=== PATIENT | female | born 1985 | race Caucasian/White ===

== ENCOUNTER 2016-09-14 19:35 | Outpatient (CLI) | payer OTHER ==
[~2016-09-14] VITALS: Ht 160 cm; Wt 75.9 kg
[2016-09-14 19:48] VITALS: Ht 160 cm; Wt 75.9 kg
[2016-09-14 19:49] VITALS: BP 126/74; PULSE 86; RESP 18
[2016-09-14] MEDS ORDERED: PREN-93 PO (19:51)
[2016-09-14] MEDS ORDERED: LACTATED RINGER'S 1,000 ML IV SCH ×2 (20:54→22:24)
--- NOTE | 2016-09-14 21:05 | RADRPT ---
PROCEDURE: OB ultrasound for biophysical profile CLINICAL INDICATION: Biophysical profile. . TECHNIQUE: Multiple sonographic images of the pelvis were obtained. Transabdominal and transvagin al views are obtained. COMPARISON: 09/01/2016 FINDINGS: Single intrauterine gestation. Presentation: Transverse maternal left Placenta: Posterior No evidence of placental abruption. No evidence of placenta previa. Cervix is closed of visualized transvaginally measuring 4.4 cm. breathing movement = 2/2 tone = 2/2 motion = 2/2 JULIA = 2/2 JULIA = 13.8 cm heart rate: 144 beats per minute IMPRESSION: Single intrauterine gestation. Biophysical profile 12/19 Presentation is breech - transverse maternal left RPTAT: AADD .Ronaldo Zepeda MD, Date Time Electronically viewed and signed by .Ronaldo Zepeda MD, on 09/14/2016 21:04 .B/
[2016-09-14 22:08] LABS: ADD UMIC NO; URINE BILIRUBIN (Dip) NEGATIVE (NEGATIVE); URINE BLOOD (Dip) NEGATIVE (NEGATIVE); URINE COLOR LT. YELLOW (YELLOW); URINE GLUCOSE (Dip) NEGATIVE (NEGATIVE); URINE KETONES (Dip) NEGATIVE (NEGATIVE); URINE LEUKOCYTE ESTERASE (Dip) NEGATIVE (NEGATIVE); URINE NITRITE (Dip) NEGATIVE (NEGATIVE); URINE TOTAL PROTEIN (Dip) NEGATIVE (NEGATIVE); URINE UROBILINOGEN (Dip) 0.2 E.U./dL (0.1-1.0)
--- NOTE | 2016-09-15 03:24 | QN ---
Documentation Comment Laborist ER panel pt 30 y.o. with an IUP at 32 weeks c/o abdominal pressure and cramps. No VB. No leaking. +FM. PMHx: none. PSHx: none. POBHX: x 2. NKDA. BP 126/74 T= 98.3 BPP 8/8 with an JULIA of 13.8cm. CX 4.4 cm long and closed. BREECH. U/A negative. NST: baseline 130 bpm with accels to 160 bpm. No decels. UC's on occasion. Pt was given IV hydration only and now feels much improved. A: IUP at 32 weeks. False labor. D/C IV and D/C home. PTL precautions reviewed. FARZANEH EDUARDO MD September 15, 2016 03:24
--- NOTE | 2016-09-15 03:45 | TRIAGE ---
OB Triage Datetime Report Generated by CPN: 09/15/2016 03:45 Datetime: 09/15/2016 03:00 Labor Evaluation Frequency: 1/HR Monitor Mode: External Duration (sec)2399: 60 Quality: Mild Pattern: Normal: <= 5 Contractions in 10 Minutes Resting Tone [place]: Relaxed Heart Rate FHR Baseline Rate: 135 FHR Baseline Changes: No Baseline Change Variability: Moderate 6-25 bpm Accelerations: 15X15 Decelerations: None Category: Category I Datetime: 09/15/2016 02:00 Labor Evaluation Frequency: 2/hr Monitor Mode: External Duration (sec)2399: 60 Quality: Mild Pattern: Normal: <= 5 Contractions in 10 Minutes Resting Tone [place]: Relaxed Heart Rate FHR Baseline Rate: 135 Monitor Mode: External US FHR Baseline Changes: No Baseline Change Variability: Moderate 6-25 bpm Accelerations: 15X15 Decelerations: None Category: Category I Datetime: 09/15/2016 01:00 Labor Evaluation Frequency: 0 Monitor Mode: External Heart Rate FHR Baseline Rate: 135 Monitor Mode: External US FHR Baseline Changes: No Baseline Change Variability: Moderate 6-25 bpm Accelerations: 15X15 Decelerations: None Category: Category I Datetime: 09/15/2016 00:00 Labor Evaluation Frequency: 0 Monitor Mode: External Heart Rate FHR Baseline Rate: 145 Monitor Mode: External US FHR Baseline Changes: No Baseline Change Variability: Moderate 6-25 bpm Accelerations: 15X15 Decelerations: None Category: Category I Datetime: 09/14/2016 23:00 Labor Evaluation Frequency: 0 Monitor Mode: External Heart Rate FHR Baseline Rate: 145 FHR Baseline Changes: No Baseline Change Variability: Moderate 6-25 bpm Accelerations: 15X15 Decelerations: None Category: Category I Datetime: 09/14/2016 22:00 Labor Evaluation Frequency: IRREGULAR Monitor Mode: External Duration (sec)2399: 60-120 Quality: Mild Pattern: Normal: <= 5 Contractions in 10 Minutes Resting Tone [place]: Relaxed Heart Rate FHR Baseline Rate: 135 Monitor Mode: External US FHR Baseline Changes: No Baseline Change Variability: Moderate 6-25 bpm Accelerations: 15X15 Decelerations: None Category: Category I Datetime: 09/14/2016 21:00 Stage of : OB Triage Labor Evaluation Frequency: 2/HR Monitor Mode: External Duration (sec)2399: 120 Quality: Mild Pattern: Normal: <= 5 Contractions in 10 Minutes Resting Tone [place]: Relaxed Heart Rate FHR Baseline Rate: 135 Monitor Mode: External US FHR Baseline Changes: No Baseline Change Variability: Moderate 6-25 bpm Accelerations: 15X15 Decelerations: None Category: Category I Datetime: 09/14/2016 20:00 Stage of : OB Triage Labor Evaluation Frequency: 0 Monitor Mode: External Heart Rate FHR Baseline Rate: 145 Monitor Mode: External US FHR Baseline Changes: No Baseline Change Variability: Moderate 6-25 bpm Accelerations: 15X15 Decelerations: None Category: Category I Datetime: 09/14/2016 19:53 EGA: 31.6 Datetime: 09/14/2016 19:42 Stage of : OB Triage Time of Arrival: 09/14/2016 19:29 Arrived By: Wheelchair Arrived From: Home Chief Complaint: ABDOMINAL PRESSURE AND CRAMPING Movement: Present Time Contractions Began: 09/14/2016 11:00 Rupture of Membranes: Denies Vaginal Bleeding: None Vaginal Discharge: Denies Recent Sexual Intercouse: Denies Abdominal Trauma: Not Applicable Patient Complaints: None (Annotations: Data stored by CPN on behalf of user) Time Provider Notified: 09/15/2016 19:30 Provider Notified: DR EDUARDO Initial Plan: CALL MD EFRachael Maternal Assessment Level of Consciousness: Fully Conscious DTR's/Clonus: DTRs 2+; No Clonus Headache: Denies Blurred Vision: No Respiratory Effort: Unlabored; Regular Rhythm; Equal Expansion Breath Sounds, Left: Clear and Equal Breath Sounds, Right: Clear and Equal Nausea/Vomiting: Denies RUQ Epigastric Pain: Denies Lower Extremities Edema: None Degree: None Upper Extremities Edema: None Degree: None Facial Edema: None Temperature Route: Oral Fall Risk Assessment History of Falling: (0) No Secondary Diagnosis: (0) No Ambulatory Aid: (0) Bedrest/Nurse Assist IV Therapy: (0) No Gait: (0) Normal/Bedrest/Immobile Mental Status: (0) Oriented to Own Ability Fall Score: 0 Fall Risk Score Definition: No Risk: No action required Monitor Mode: External Monitor Mode: External US Pain Assessment Pain Scale: 6 Pain Presence: Intermittent Pain Type: Cramping Pain Location: Abdomen
== END 2016-09-15 03:31 | disposition home or self-care (01) ==
LOC: L-D 19:35 → OBT 19:35
PROVIDERS: ATTEND Obstetrics & Gynecology
DX: O47.03 False labor before 37 completed weeks of gestation, third trimester (principal); Z3A.32 32 weeks gestation of pregnancy
CPT/HCPCS: 76817; 76818; 81003; 87086; 96360; 96361; J7120; Z7500; G0463

== ENCOUNTER 2018-06-23 18:49 | Inpatient (IN) | payer MEDICAID ==
[~2018-06-23] VITALS: Ht 160 cm; Wt 74.2 kg
[~2018-06-23 18:49] MED LIST: PREN-93 PO
[2018-06-23 18:59] VITALS: Ht 160 cm; Wt 74.2 kg
[2018-06-23 19:00] VITALS: BP 107/52; PULSE 62; RESP 18
[2018-06-23] MEDS: LACTATED RINGER'S 1,000 ML IV SCH (23:32)
[2018-06-23] MEDS: MEPERIDINE 25 MG INJ IV PRN (23:32)
[2018-06-23] MEDS: ONDANSETRON 4 MG INJ IV PRN (23:33)
[2018-06-24] MEDS: LACTATED RINGER'S 1,000 ML IV SCH ×3 (03:07→16:36)
[2018-06-24] MEDS: ONDANSETRON 4 MG INJ IV PRN (04:23)
[2018-06-24] MEDS: MEPERIDINE 25 MG INJ IV PRN ×2 (04:23→14:06)
--- NOTE | 2018-06-24 13:01 | HP ---
Date/Time of Note Date/Time of Note DATE: 06/24/18 TIME: 12:58 OB - History Hx of Present Chief Complaint: Epigasric pain Estimated Due Date: Oct 24, 2018 : 4 Para: 3 Spontaneous : 0 Therapeutic : 0 Care: Other (records not available) Obstetrical Complications: None Medical Complications: None Past Family/Social History * Past Medical, Surgical, Family and Obstetric Histories reviewed from chart. OB Admission Exam Vital Signs Vital Signs Vital Signs Date Temp Pulse Resp B/P (MAP) Pulse Ox O2 O2 Flow FiO2 Time Delivery Rate 06/23/18 97.6 62 18 107/52 Room Air 19:00 (70) Physical Exam HEENT: WNL Heart: Rhythm Normal Lungs: Clear, Equal Abdomen: WNL Extremities: Normal Reflexes: Normal Cervical Dilatation: None Heart Rate: 130's Last 72 hours Lab Results CBC & BMP 06/23/18 19:38 06/24/18 06:10 Liver Function Test 06/23/18 19:38 06/24/18 06:10 Alanine Aminotransferase (ALT/SGPT) 16 60 Albumin 3.4 2.7 L Alkaline Phosphatase 128 H 150 H Aspartate Amino Transf (AST/SGOT) 32 118 H Direct Bilirubin 0.00 0.00 Total Protein 6.7 5.4 #L OB Assessment/Plan Reason for admission: other Other Assessment: Gallstone pancreatitis Cholelithiasis Plan: Other Other plan: Admit NPO IV hydration Surgery consult SILVANO MICHELLE MD Jun 24, 2018 13:01
--- NOTE | 2018-06-24 14:00 | CONS ---
Assessment/Plan Assessment/Plan Hospital Course (Demo Recall) 1. Acute pancreatitis likely secondary to gallstones -N.p.o. -Aggressive IV fluid 2. Cholelithiasis with concern for choledocholithiasis -GI consult for possible ERCP -MRCP to evaluate for choledocholithiasis 3. Transaminitis: -As above -Trend 4. Gravid 22 weeks: -Per knifeman 5. Hypoalbuminemia: -Eventual nutrition optimization 6. Normocytic normochromic anemia: -Monitor and transfuse as needed Thank you. Patient seen and examined in collaboration with Dr. Sergio Tovar. Consultation Date/Type/Reason Admit Date/Time Jun 23, 2018 at 22:45 Date of Consultation: Jun 24, 2018 Type of Consult Surgical Reason for Consultation Abdominal pain, cholelithiasis, choledocholithiasis Requesting Provider: SILVANO MICHELLE MD Date/Time of Note DATE: 06/24/18 TIME: 13:49 Hx of Present Illness Peggy Santo is a 32-year-old woman with out significant past medical history, 4 para 3, currently 22 weeks , who presented with complaints of abdominal pain. Abdominal pain is predominantly in the midepigastric region, sharp and persistent in nature. Pain reportedly began a few hours after eating. She denies fevers, chills, sob, congested cough, cp, palpitations, lundberg, dizziness, n/v/d/dysuria, change in bowel/bladder habits. Ultrasound of the right upper quadrant shows cholelithiasis without sonographic evidence of cholecystitis, as well as mild dilatation of the common bile duct concerning for nonvisualized choledocholithiasis.Laboratory findings remarkable for mild transaminitis as well as elevated amylase and lipase. General surgery was asked to evaluate. 12 point review of systems was performed and is negative except for stated in HPI. Past Medical History Medical History: no pertinent history Home Meds Reported Medications Vit No.124/Iron/FA ( Vitamin Tablet) 1 Each Tablet, 1 EACH PO, TAB 09/14/16 Medications Current Medications Lactated Ringer's 1,000 ml @ 150 mls/hr Q6H40M IV Last administered on 06/24/18at 09:48; Admin Dose 150 MLS/HR; Start 06/23/18 at 22:50 Ondansetron HCl (Zofran Inj) 4 mg Q6H PRN IV NAUSEA/VOMITING Last administered on 06/24/18at 04:23; Admin Dose 4 MG; Start 06/23/18 at 23:00 Meperidine HCl (Demerol) 25 mg Q4H PRN IV SEVERE PAIN LEVEL 7-10 Last a dministered on 06/24/18at 04:23; Admin Dose 25 MG; Start 06/23/18 at 23:00 Allergies: Coded Allergies: No Known Allergy (Unverified , 09/14/16) Past Surgical History Past Surgical Hx: no surgical history Family History Significant Family History: no pertinent family hx Social History Smoking Status: Never smoker Exam/Review of Systems Exam Vitals Vital Signs Date Temp Pulse Resp B/P (MAP) Pulse Ox O2 O2 Flow FiO2 Time Delivery Rate 06/23/18 97.6 62 18 107/52 Room Air 19:00 (70) Intake and Output 06/23/18 06/23/18 06/24/18 1515:00 23:00 07:00 IntakeIntake Total 1575 ml BalanceBalance 1575 ml Constitutional: alert, oriented, well developed Psych: nl mood/affect; No anxiety Head: normocephalic, atraumatic Eyes: nl conjunctiva, EOMI, nl lids, nl sclera ENMT: nl external ears & nose, nl lips & teeth, mucosa pink and moist Neck: supple, non-tender; No jvd Respiratory: normal air movement; No congested cough Cardiovascular: regular rate and rhythm, nl pulses Gastrointestinal: soft, distended (Minimal), tender (Midepigastric and right upper quadrant; negative Steiner's by palpation), other (Gravid) Genitourinary - Female: nl external genitalia Musculoskeletal: nl extremities to inspection, nl gait and stance Extremities: normal pulses Neurological: nl mental status, nl speech, nl strength Skin: No rash or lesions Results Result Diagram: 06/24/18 0610 06/24/18 0610 Results 24hrs Laboratory Tests Test 06/23/18 19:38 06/23/18 20:30 06/24/18 06:10 White Blood Count 11.8 H 9.5 Red Blood Count 3.42 #L 3.32 L Hemoglobin 11.0 L 10.6 L Hematocrit 32.9 #L 31.8 L Mean Corpuscular Volume 96.2 95.8 Mean Corpuscular Hemoglobin 32.2 31.9 Mean Corpuscular 33.4 33.3 Hemoglobin Concent Red Cell Distribution Width 13.3 13.4 Platelet Count 256 257 Mean Platelet Volume 10.2 10.5 H Immature Granulocytes % 0.900 H 0.500 H Neutrophils % 83.9 H 79.3 H Lymphocytes % 10.0 L 12.3 L Monocytes % 4.3 7.0 Eosinophils % 0.7 0.8 Basophils % 0.2 0.1 Nucleated Red Blood Cells % 0.0 0.0 Immature Granulocytes # 0.100 H 0.050 H Neutrophils # 9.9 H 7.5 Lymphocytes # 1.2 1.2 Monocytes # 0.5 0.7 Eosinophils # 0.1 0.1 Basophils # 0.0 0.0 Nucleated Red Blood Cells # 0.0 0.0 Sodium Level 135 137 Potassium Level 3.2 L 4.1 Chloride Level 104 109 Carbon Dioxide Level 22 22 Anion Gap 9 6 Blood Urea Nitrogen 11 7 Creatinine 0.51 0.45 Est Glomerular Filtrat > 60 > 60 Rate mL/min Glucose Level 118 90 Calcium Level 8.8 8.7 Total Bilirubin 0.2 0.2 Direct Bilirubin 0.00 0.00 Indirect Bilirubin 0.2 0.2 Aspartate Amino 32 118 H Transf (AST/SGOT) Alanine 16 60 Aminotransferase (ALT/SGPT) Alkaline Phosphatase 128 H 150 H Total Protein 6.7 5.4 #L Albumin 3.4 2.7 L Globulin 3.30 H 2.70 Albumin/Globulin Ratio 1.03 1.00 Amylase Level 118 367 #H Lipase 170 2815 H Urine Color YELLOW Urine Clarity SLIGHTLY CLOUDY A Urine pH 7.0 Urine Specific [place] 1.013 Urine Ketones NEGATIVE Urine Nitrite NEGATIVE Urine Bilirubin NEGATIVE Urine Urobilinogen NEGATIVE Urine Leukocyte Esterase NEGATIVE Urine Microscopic RBC 0 Urine Microscopic WBC 3 Urine Squamous MODERATE Epithelial Cells Urine Hemoglobin NEGATIVE Urine Glucose NEGATIVE Urine Total Protein 1+ H Medications Medication Current Medications Lactated Ringer's 1,000 ml @ 150 mls/hr Q6H40M IV Last administered on 06/24/18at 09:48; Admin Dose 150 MLS/HR; Start 06/23/18 at 22:50 Ondansetron HCl (Zofran Inj) 4 mg Q6H PRN IV NAUSEA/VOMITING Last administered on 06/24/18at 04:23; Admin Dose 4 MG; Start 06/23/18 at 23:00 Meperidine HCl (Demerol) 25 mg Q4H PRN IV SEVERE PAIN LEVEL 7-10 Last administered on 06/24/18 04:23; Admin Dose 25 MG; Start 06/23/18 at 23:00 OMKAR SIMMONS NP Jun 24, 2018 13:59
[2018-06-24] MEDS: DEXTROSE 5%-LR 1,000 ML IV SCH (21:07)
[2018-06-25] MEDS: DEXTROSE 5%-LR 1,000 ML IV SCH ×4 (03:55→23:40)
[2018-06-25] MEDS: MEPERIDINE 25 MG INJ IV PRN ×3 (03:55→18:57)
--- NOTE | 2018-06-25 12:18 | PN ---
Date/Time of Note Date/Time of Note DATE: 06/25/18 TIME: 12:15 Assessment/Plan Lines/Catheters IV Catheter Type (from [facility]): Peripheral IV Assessment/Plan Chief Complaint/Hosp Course 1. Acute pancreatitis likely secondary to gallstones:resolved -ok for clears 2. Cholelithiasis with concern for choledocholithiasis -GI consult for possible ERCP -MRCP to evaluate for choledocholithiasis>pending 3. Transaminitis:resolved -As above -Trend 4. Gravid 22 weeks: -Per bodybuilder 5. Hypoalbuminemia: -Eventual nutrition optimization 6. Normocytic normochromic anemia: -Monitor and transfuse as needed Thank you. Patient seen and examined in collaboration with Dr. Sergio Tovar. Subjective 24 Hr Interval Summary abdominal pain improved. MRI pending today. james/lipase normalized. No fevers, chills, sob, congested cough, cp, palpitations, lundberg, dizziness, n/v/d/dysuria. Exam/Review of Systems Vital Signs Vitals Vital Signs Date Temp Pulse Resp B/P (MAP) Pulse Ox O2 O2 Flow FiO2 Time Delivery Rate 06/23/18 97.6 62 18 107/52 Room Air 19:00 (70) Intake and Output 06/24/18 06/24/18 06/25/18 1515:00 23:00 07:00 IntakeIntake Total 425 ml 2000 ml 1300 ml BalanceBalance 425 ml 2000 ml 1300 ml Exam Free Text/Dictation Constitutional: alert, oriented, well developed Psych: nl mood/affect; No anxiety Head: normocephalic, atraumatic Eyes: nl conjunctiva, EOMI, nl lids, nl sclera ENMT: nl external ears & nose, nl lips & teeth, mucosa pink and moist Neck: supple, non-tender; No jvd Respiratory: normal air movement; No congested cough Cardiovascular: regular rate and rhythm, nl pulses Gastrointestinal: soft, distended (Minimal), tender (Midepigastric and right upper quadrant; negative Steiner's by palpation--improved), other (Gravid) Genitourinary - Female: nl external genitalia Musculoskeletal: nl extremities to inspection, nl gait and stance Extremities: normal pulses Neurological: nl mental status, nl speech, nl strength Skin: No rash or lesions Results Result Diagram: 06/25/18 0736 06/25/18 0736 OMKAR SIMMONS NP Jun 25, 2018 12:18
--- NOTE | 2018-06-25 16:29 | QN ---
Documentation Comment Patient had pain earlier. Patient feels better. Afebrile VSS Strip Appropriate for GA Amylase and lipase improved Advance to clear liquids per Surery. SILVANO MICHELLE MD Jun 25, 2018 16:29
[2018-06-25] MEDS: ONDANSETRON 4 MG INJ IV PRN (21:16)
[2018-06-25] MEDS: ACETAMINOPHEN 325 MG TAB PO PRN (21:44)
[2018-06-26] MEDS: DEXTROSE 5%-LR 1,000 ML IV SCH ×3 (04:07→20:21)
[2018-06-26] MEDS: MEPERIDINE 25 MG INJ IV PRN ×4 (07:16→18:10)
--- NOTE | 2018-06-26 12:01 | QN ---
Documentation Comment C/o abdominal pain Afebrile VSS Strip appropriate for GA Continue care per Surgery SILVANO MICHELLE MD Jun 26, 2018 12:01
[2018-06-26] MEDS: ONDANSETRON 4 MG INJ IV PRN (18:10)
--- NOTE | 2018-06-26 21:56 | PN ---
Date/Time of Note Date/Time of Note DATE: 06/26/18 TIME: 21:53 Assessment/Plan Lines/Catheters IV Catheter Type (from [facility]): Peripheral IV Assessment/Plan Chief Complaint/Hosp Course 1. Acute pancreatitis likely secondary to gallstones:resolved -Low-fat low-cholesterol diet 2. Cholelithiasis with concern for choledocholithiasis; MRCP noted without choledocholithiasis -If tolerating diet patient may be discharged medical team with outpatient follow-up for possible elective laparoscopic cholecystectomy 3. Transaminitis:resolved -As above -Trend 4. Gravid 22 weeks: -Per superintendent institution 5. Hypoalbuminemia: -Eventual nutrition optimization 6. Normocytic normochromic anemia: -Monitor and transfuse as needed Thank you. Patient seen and examined in collaboration with Dr. Sergio Tovar. Subjective 24 Hr Interval Summary Feels well. Tolerated clear liquids. No fevers, chills, sob, congested cough, cp, palpitations, lundberg, dizziness, nausea, vomiting, diarrhea, dysuria. Exam/Review of Systems Vital Signs Vitals Vital Signs Date Temp Pulse Resp B/P (MAP) Pulse Ox O2 O2 Flow FiO2 Time Delivery Rate 06/23/18 97.6 62 18 107/52 Room Air 19:00 (70) Intake and Output 06/25/18 06/25/18 06/26/18 1515:00 23:00 07:00 IntakeIntake Total 700 ml 1600 ml 600 ml OutputOutput Total 400 ml 700 ml BalanceBalance 300 ml 900 ml 600 ml Exam Free Text/Dictation Constitutional: alert, oriented, well developed Psych: nl mood/affect; No anxiety Head: normocephalic, atraumatic Eyes: nl conjunctiva, EOMI, nl lids, nl sclera ENMT: nl external ears & nose, nl lips & teeth, mucosa pink and moist Neck: supple, non-tender; No jvd Respiratory: normal air movement; No congested cough Cardiovascular: regular rate and rhythm, nl pulses Gastrointestinal: soft, distended (Minimal), tender (Midepigastric and right upper quadrant; negative Steiner's by palpation--improved), other (Gravid) Genitourinary - Female: nl external genitalia Musculoskeletal: nl extremities to inspection, nl gait and stance Extremities: normal pulses Neurological: nl mental status, nl speech, nl strength Skin: No rash or lesions Results Result Diagram: 06/25/18 0736 06/25/18 0736 OMKAR SIMMONS NP Jun 26, 2018 21:56
[2018-06-26] MEDS: ACETAMINOPHEN 325 MG TAB PO PRN (23:55)
[2018-06-27] MEDS: DEXTROSE 5%-LR 1,000 ML IV SCH ×3 (05:39→19:58)
--- NOTE | 2018-06-27 11:25 | PN ---
Date/Time of Note Date/Time of Note DATE: 06/27/18 TIME: 11:22 Assessment/Plan Lines/Catheters IV [facility] Type (from [facility]): Peripheral IV Assessment/Plan Chief Complaint/Hosp Course 1. Acute pancreatitis likely secondary to gallstones:resolved -Low-fat low-cholesterol diet 2. Cholelithiasis with concern for choledocholithiasis; MRCP noted without choledocholithiasis; discussed cholecystectomy procedure, risks and benefits, at this time patient is electing to wait until after delivery for elective cholecystectomy -If tolerating diet without significant pain patient may be discharged medical team with outpatient follow-up for possible elective laparoscopic cholecystectomy after delivery 3. Transaminitis:resolved -As above -Trend 4. Gravid 22 weeks: -Per research librarian 5. Hypoalbuminemia: -Eventual nutrition optimization 6. Normocytic normochromic anemia: -Monitor and transfuse as needed 7. Hypokalemia: -replace and monitor Thank you. Patient seen and examined in collaboration with Dr. Sergio Tovar. Subjective 24 Hr Interval Summary Abdominal discomfort much improved. No fevers, chills, sob, congested cough, cp, palpitations, lundberg, dizziness, n/v/d/dysuria. Exam/Review of Systems Vital Signs Vitals Vital Signs Date Temp Pulse Resp B/P (MAP) Pulse Ox O2 O2 Flow FiO2 Time Delivery Rate 06/23/18 97.6 62 18 107/52 Room Air 19:00 (70) Intake and Output 06/26/18 06/26/18 06/27/18 1414:59 22:59 06:59 IntakeIntake Total 1050 ml 1150 ml 600 ml OutputOutput Total 800 ml 800 ml BalanceBalance 250 ml 350 ml 600 ml Exam Free Text/Dictation Constitutional: alert, oriented, well developed Psych: nl mood/affect; No anxiety Head: normocephalic, atraumatic Eyes: nl conjunctiva, EOMI, nl lids, nl sclera ENMT: nl external ears & nose, nl lips & teeth, mucosa pink and moist Neck: supple, non-tender; No jvd Respiratory: normal air movement; No congested cough Cardiovascular: regular rate and rhythm, nl pulses Gastrointestinal: soft, nondistended, nontender ; negative Steiner's by palpation, other (Gravid) Genitourinary - Female: nl external genitalia Musculoskeletal: nl extremities to inspection, nl gait and stance Extremities: normal pulses Neurological: nl mental status, nl speech, nl strength Skin: No rash or lesions Results Result Diagram: 06/27/18 0700 06/27/18 0700 OMKAR SIMMONS NP Jun 27, 2018 11:25
[2018-06-27] MEDS: ONDANSETRON 4 MG INJ IV PRN (14:31)
--- NOTE | 2018-06-27 21:53 | DS ---
Date/Time of Note Date/Time of Note DATE: 06/27/18 TIME: 21:51 Obstetrical Discharge Record Final Diagnosis Final Diagnosis: not delivered Other Final Diagnosis Acute pancreatitis Cholelithiasis Condition on Discharge Physical Assessment Voiding: Yes Bowel Movement: Yes Calf Tenderness: No Patient Condition: Stable SILVANO MICHELLE MD Jun 27, 2018 21:53
== END 2018-06-27 22:20 | disposition home or self-care (01) | DRG 831 ==
LOC: OBT 18:49 → L-D 18:50 → OBT 22:45 → L-D 22:45 → PP1 06-24 00:15
PROVIDERS: ADMIT Obstetrics & Gynecology; ATTEND Obstetrics & Gynecology
DX: O99.612 Diseases of the digestive system complicating pregnancy, second trimester (principal); K85.90 Acute pancreatitis without necrosis or infection, unspecified; O99.012 Anemia complicating pregnancy, second trimester; Z3A.22 22 weeks gestation of pregnancy; E88.09 Other disorders of plasma-protein metabolism, not elsewhere classified
CPT/HCPCS: 74181; 76705; 76815; 76817; 80053; 81001; 82150; 83690; 85025; 86592; 86850; 86900; 86901; G0463; J2175; J2405; J7120; J7121